=== PATIENT | female | born 1950 | race Caucasian/White ===

== ENCOUNTER 2017-10-18 00:48 | Inpatient (IN) | payer MEDICARE, BC ==
[2017-10-18] MEDS ORDERED: NORMAL SALINE 1,000 ML IV ONE (01:40)
[2017-10-18] MEDS ORDERED: ONDANSETRON HCL/PF 2 MG/ML VIAL IV ONE ×2 (01:40→02:18)
[2017-10-18] MEDS ORDERED: MORPHINE SULFATE 2 MG/ML DISP.SYRIN IV ONE ×4 (01:40→06:13)
--- NOTE | 2017-10-18 01:42 | ERNOTE ---
Abdominal HPI - General Chief Complaint: Abdominal Pain Time Seen by Provider: 10/18/17 01:36 Source: patient Exam Limitations: no limitations - Immun/Allergies/Home Medications Immunizatons: IMMUNIZATION HX Immunizations Up to Date Yes History of Influenza Vaccine Yes Hx Pneumococcal Vaccination Yes Allergies/Adverse Reactions: Allergies Sulfa (Sulfonamide Antibiotics) Allergy (Verified 10/18/17 01:08) Home Medications: HOME MEDICATIONS Atorvastatin Calcium 40 mg PO DAILY 10/18/17 [Last Taken Unknown] Bimatoprost [Lumigan 0.01% Opth Solution] 2.5 ml OP DAILY 10/18/17 [Last Taken Unknown] Cyclobenzaprine HCl 5 mg PO DAILY 10/18/17 [Last Taken Unknown] FLUoxetine HCL [Fluoxetine HCl] 20 mg PO DAILY 10/18/17 [Last Taken Unknown] Fenofibric Acid [Fibricor] 105 mg PO DAILY 10/18/17 [Last Taken Unknown] Losartan Potassium [Cozaar] 50 mg PO DAILY 10/18/17 [Last Taken Unknown] Montelukast Sodium [Singulair] 10 mg PO DAILY 10/18/17 [Last Taken Unknown] Ondansetron [Zofran Odt] 4 mg PO TID PRN 10/18/17 [Last Taken Unknown] Potassium Chloride [Klor-Con 10] 40 meq PO DAILY 10/18/17 [Last Taken Unknown] Verapamil HCl [Verapamil ER] 120 mg PO DAILY 10/18/17 [Last Taken Unknown] acetaZOLAMIDE [Acetazolamide] 375 mg PO DAILY 10/18/17 [Last Taken Unknown] - History of Present Illness Narrative: Pt states she had some abdominal pain yesterday. This afternoon around 16:00 she began to have increasing left abdominal pain with vomiting and diaphoresis. Timing: getting worse Quality: severe, aching Activities at Onset: none Modifying Factors - (Improves): Present: lying down Modifying Factors - (Worsens): Present: movement Associated Symptoms: Present: diaphoresis, nausea, vomiting Prior Abdominal Problems: Present: similar symptoms - with diverticulitis but is more severe this time. Review of Systems - Review of Systems Constitutional: Present: fever, chills. Absent: recent illness EYE: Present: no symptoms reported ENT: Present: no symptoms reported Respiratory: Absent: shortness of breath Cardiology: Absent: chest pain Gastrointestinal/Abdominal: Present: See HPI, nausea, vomiting. Absent: diarrhea, constipation Genitourinary: Absent: dysuria Musculoskeletal: Absent: back pain Skin: Absent: rash Neurological: Present: no symptoms reported Endocrine: Present: excessive sweating Hematologic/Lymphatic: Present: no symptoms reported Psych: Present: no symptoms reported - Patient's Past Medical History Patient History - Medical: Other Patient History - Cardiac/Respiratory: Hypertension, Hyperlipidemia Patient History - Cancer: No Hx of Cancer Patient History - Surgical Procedures: Patient History - Other: None - Social History Living Situations: alone Smoking Status: Never smoker Have you smoked in the past 12 months: No Do you dip or chew tobacco: No Alcohol Use: none Drug Use: none - Immunizations Immunizations Up to Date: Yes Hx Pneumococcal Vaccination: Yes History of Influenza Vaccine: Yes Physical Exam - Physical Exam General Appearance: Present: wd/wn, alert, mild distress Head Exam: Present: normal inspection, no evidence of injury Neck: Present: normal inspection, nontender Respiratory: Present: no respiratory distress, normal breath sounds, no accessory muscle use Cardiovascular/Chest: Present: regular rate, rhythm, no murmur, normal peripheral pulses Gastrointestinal/Abdominal: Present: tenderness - LUQ, LLQ, abnormal bowel sounds - Hypoactive, guarding - mild . Absent: rebound Extremity Exam: Present: normal inspection, normal range of motion Neurological Exam: Present: alert, oriented, no motor/sensory deficits Skin Exam: Present: normal color, warm/dry ED Progress - Results and Orders Patient's Lab Results:: I have reviewed the patient's lab results. Results and Orders: Laboratory Tests 10/18/17 10/18/17 01:40 01:40 WBC 5.7 Hgb 13.3 Hct 39.1 Plt Count 310 Neutrophils % 83.0 H Sodium 139 Potassium 3.4 Chloride 107 H Carbon Dioxide 15.2 L BUN 16 Creatinine 1.00 Random Glucose 211 H Calcium 9.8 Total Bilirubin 0.6 AST 17 ALT 30 Alkaline Phosphatase 54 Total Protein 7.7 Albumin 4.0 Amylase 39 Lipase 136 Laboratory Tests 10/18/17 10/18/17 10/18/17 02:42 02:42 03:47 ESR 19 H C-Reactive Prot, Quant 2.4 H Urine Color Dark yellow Urine Appearance Clear Urine pH 7.0 Ur Specific [place] 1.015 Urine Protein Negative Urine Glucose (UA) Negative Urine Ketones Negative Urine Blood Negative Urine Nitrate Negative Urine Bilirubin Negative Urine Urobilinogen Normal Ur Leukocyte Esterase Negative Urine RBC 5-10 H Urine WBC 0-5 Ur Epithelial Cells 5-10 H Amorphous Sediment Many - 3+ H Urine Bacteria None seen Urine Mucus Few - 1+ H Urine Yeast Moderate - 2+ H Urine Culture Comments No culture indicated - Vital Signs Patient's Vital Signs:: I have reviewed the patient's vital signs. Vital Signs: Vital Signs 10/18/17 01:02 Temperature 37.0 C Pulse Rate 104 H Respiratory 16 Rate Blood Pressure 150/83 O2 Sat by Pulse 98 Oximetry - CT/Ultrasound CT/Ultrasound Narrative: CT abd/ pelvis: gallbladder diffusely distended and contains gallstones Perforated descending diverticulitis with adjacent loculated fluid collection, possibly abscess - Progress/Reassessment Chief Complaint: Abdominal Pain Progress:: Improved Progress Note-Subjective: 10/18/17 05:[address] Gastelum - Gen. Surgery and he agrees with admit and asks to have the patient admitted to medicine and consult him. spoke with Sergey SILVA -hospitalist, she agrees with admit. Departure Clinical Impression: Diverticulitis of colon with perforation Qualifiers: Diverticulitis bleeding: unspecified bleeding status Qualified Code(s): K57.20 - Diverticulitis of large intestine with perforation and abscess without bleeding - Departure Disposition: Still a patient Condition: Stable
[2017-10-18] MEDS ORDERED: MORPHINE SULFATE 2 MG/ML DISP.SYRIN ONE ×4 (01:50→06:13)
[2017-10-18] MEDS ORDERED: ONDANSETRON HCL/PF 2 MG/ML VIAL ONE ×2 (01:51→02:28)
[2017-10-18 02:07] LABS: Hematocrit 39.1 % (37.0-47.0); Hemoglobin 13.3 gm/dL (12.5-16.0); Mean Corpuscular Hemoglobin 27.9 pg (27-31); Mean Platelet Volume 9.9 fl (6.0-9.5); Neutrophil # 4.7 K/mm3 (1.3-6.0); Platelet Count 310 K/mm3 (150-450); Red Blood Count 4.77 M/mm3 (4.2-5.4); Red Cell Distribution Width 13.4 % (11.5-14.0); White Blood Count 5.7 K/mm3 (4.0-10.5)
[2017-10-18 02:29] LABS: Anion Gap 20.2 mmol/L (6.8-13.8); Bilirubin, Total 0.6 mg/dL (0.0-1.1); Ca. Corrected For Albumin 9.5 mg/dL (8.4-10.2); Calcium * 9.8 mg/dL (7.9-10.9); Carbon Dioxide 15.2 mmol/L (24-32.6); Potassium 3.4 mmol/L (3.4-4.6); Total Protein 7.7 gm/dL (6.2-8.2)
[2017-10-18] MEDS ORDERED: DIATRIZOATE MEGLUMINE, SODIUM 30 ML BTL PO ONE (02:47)
[2017-10-18] MEDS ORDERED: DIATRIZOATE MEGLUMINE, SODIUM 30 ML BTL ONE (02:48)
[2017-10-18] MEDS ORDERED: PROMETHAZINE HCL 25 MG/ML AMPUL IM ONE (03:14)
[2017-10-18] MEDS ORDERED: PROMETHAZINE HCL 25 MG/ML AMPUL ONE (03:15)
[2017-10-18 03:54] LABS: Urine Bilirubin Negative (NEGATIVE); Urine Blood Negative /ul (NEGATIVE); Urine Ketone Negative (NEGATIVE); Urine Nitrite Negative (NEGATIVE); Urine Protein Negative (NEGATIVE); Urine Specific Gravity 1.015 SP.GR. (1.005-1.010); Urine Urobilinogen Normal (NORMAL)
[2017-10-18 03:56] LABS: Urine Amorphous Sediment Many - 3+ (NONE-FEW); Urine Appearance Clear (CLEAR); Urine Bacteria None Seen; Urine Color Dark Yellow; Urine Mucus Few - 1+; Urine WBC 0-5 /hpf (0-5); Urine Yeast Moderate - 2+
[2017-10-18] MEDS ORDERED: PROCHLORPERAZINE EDISYLATE 5 MG/ML VIAL IV ONE (05:16)
[2017-10-18] MEDS ORDERED: PROCHLORPERAZINE EDISYLATE 5 MG/ML VIAL ONE (05:18)
[2017-10-18] MEDS ORDERED: CIPROFLOXACIN IN 5 % DEXTROSE 400 MG/200 ML BAG IV SCH (05:45)
[2017-10-18] MEDS ORDERED: MORPHINE SULFATE 2 MG/ML DISP.SYRIN IV PRN (06:57)
[2017-10-18] MEDS ORDERED: ONDANSETRON HCL/PF 2 MG/ML VIAL IV PRN (06:58)
[2017-10-18] MEDS: POTASSIUM CHLORIDE 20 MEQ in DEXTROSE 5%-NORMAL SALINE 990 ML IV SCH ×2 (08:00→23:31)
[2017-10-18] MEDS: PANTOPRAZOLE SODIUM 40 MG in NORMAL SALINE 50 ML IV SCH (08:03)
[2017-10-18] MEDS: metroNIDAZOLE/SODIUM CHLORIDE 500 MG/100 ML BAG IV SCH ×2 (11:15→19:55)
--- NOTE | 2017-10-18 13:08 | CONS ---
HPI - General Date of Service: 10/18/17 Narrative: Pt presented to ER with severe LLQ abdominal pain and was found to have a contained perforation of proximal sigmoid diverticulitis. I have reviewed the films. She has had a previous episode of diverticulitis that was successfully treated with oral antibiotics. Source: patient, RN/MD, old records Exam Limitations: no limitations - History of Present Illness Allergies/Adverse Reactions: Allergies Sulfa (Sulfonamide Antibiotics) Allergy (Severe, Verified 10/18/17 07:12) Hives Home Medications: Home Medications Medication Instructions Recorded Last Taken Atorvastatin Calcium 40 mg PO DAILY 10/18/17 Unknown Bimatoprost [Lumigan 0.01% Opth 2.5 ml OP DAILY 10/18/17 Unknown Solution] Cyclobenzaprine HCl 5 mg PO DAILY 10/18/17 Unknown FLUoxetine HCL [Fluoxetine HCl] 20 mg PO DAILY 10/18/17 Unknown Fenofibric Acid [Fibricor] 105 mg PO DAILY 10/18/17 Unknown Losartan Potassium [Cozaar] 50 mg PO DAILY 10/18/17 Unknown Montelukast Sodium [Singulair] 10 mg PO DAILY 10/18/17 Unknown Ondansetron [Zofran Odt] 4 mg PO TID PRN 10/18/17 Unknown Potassium Chloride [Klor-Con 10] 40 meq PO DAILY 10/18/17 Unknown Verapamil HCl [Verapamil ER] 120 mg PO DAILY 10/18/17 Unknown acetaZOLAMIDE [Acetazolamide] 375 mg PO DAILY 10/18/17 Unknown - Patient's Past Medical History Patient History - Medical: Other Patient History - Cardiac/Respiratory: Hypertension, Hyperlipidemia Patient History - Cancer: No Hx of Cancer Patient History - Surgical Procedures: Patient History - Other: None - Social History Living Situations: alone Abuse History: No History of abuse Psych History: No pertinent hx Smoking Status: Never smoker Have you smoked in the past 12 months: No Do you dip or chew tobacco: No Patient requests Smoking Cessation Consult: No Initiate information on Smoking Cessation: No Alcohol Use: none Drug Use: none - Immunizations Immunizations Up to Date: Yes Hx Pneumococcal Vaccination: Yes History of Influenza Vaccine: Yes Procedures APPLICATION OF SPLINT (03/27/10) Medications - Medications Current Medications: Current Medications Pantoprazole Sodium 40 mg/ (Sodium Chloride) 50 mls @ 200 mls/hr IV Q24H ALENA Stop: 11/17/17 07:01 Last Admin: 10/18/17 08:03 Dose: 200 mls/hr Potassium Chloride 20 meq/ (Dextrose/Sodium Chloride) 1,000 mls @ 80 mls/hr IV .[id number] ALENA Stop: 11/17/17 07:01 Last Admin: 10/18/17 08:00 Dose: 80 mls/hr Metronidazole (Flagyl) 500 mg in 100 mls @ 100 mls/hr IV Q8H ALENA Stop: 11/17/17 11:01 Last Admin: 10/18/17 11:15 Dose: 100 mls/hr Morphine Sulfate (Morphine Sulfate) 2 mg IV Q6H PRN PRN Reason: Pain Stop: 11/17/17 06:58 Last Admin: 10/18/17 11:14 Dose: 2 mg Review of Systems - Review of Systems Abdominal: Present: Abdominal Pain Misc: All systems neg except as marked Physical Examination - Exam Vital Signs: Vital Signs - Last Taken Temp 37.0 C 10/18/17 10:25 Pulse 96 10/18/17 10:25 Resp 24 H 10/18/17 10:25 BP 137/78 10/18/17 10:25 Pulse Ox 91 10/18/17 10:25 O2 Oxygen Delivery Method Room Air Constitutional: Present: Alert, Oriented x3, Cooperative, Well developed, Well nourished, No distress, Obese ENT Exam: Present: normal ENT inspection Eye Exam: bilateral eye: normal inspection Neck: Present: normal inspection Respiratory: Present: lungs clear, normal breath sounds, no respiratory distress , no accessory muscle use Cardiovascular/Chest: Present: regular rate, rhythm, no murmur Abdomen: Present: Normal bowel sounds, soft, nondistended, tender - LLQ Skin Exam: Present: normal color, warm/dry Neurologic: Present: no motor/sensory deficits Appearance: Present: appropriate appearance, appropriate insight Eye contact: Present: cooperative, good eye contact Thoughts: Present: normal thought pattern - Assessments/Findings (1) Diverticulitis of colon with perforation Diagnosis(s): This appears to be a contained perforation. It would be reasonable to treat this with antibiotics and see if it would organize into a drainable abscess that could be treated with percutaneous drainage thereby hopefully avoiding a colostomy. Problem: Acute Qualifiers: Diverticulitis bleeding: unspecified bleeding status Qualified Code(s): K57.20 - Diverticulitis of large intestine with perforation and abscess without bleeding
--- NOTE | 2017-10-18 13:31 | HP ---
Chief Complaint - Chief Complaint Date of Service: 10/18/17 Time of Service: 07:45 Chief Complaint: Abdominal pain History of Present Illness: Shannon Walter is a 66-year-old female who presented to the emergency room last night with abdominal pain. Her workup discovered a ruptured viscus from a perforated diverticulum in the sigmoid colon area. He continues to have pain in the sigmoid pain area this morning. She is nothing by mouth. Onset of her symptoms were last night. She is has some intermittent nausea but was not having any Time of my exam this morning. - Patient's Past Medical History Patient History - Medical: Other Patient History - Cardiac/Respiratory: Hypertension, Hyperlipidemia Patient History - Cancer: No Hx of Cancer Patient History - Surgical Procedures: Patient History - Other: None - Family History Family History:: no untoward family reactions to anesthesia, no familial bleeding tendencies, no family history of clotting disorders, no family history of premature - Social History Living Situations: alone Abuse History: No History of abuse Psych History: No pertinent hx Smoking Status: Never smoker Have you smoked in the past 12 months: No Do you dip or chew tobacco: No Patient requests Smoking Cessation Consult: No Initiate information on Smoking Cessation: No Alcohol Use: none Drug Use: none - Immunizations Immunizations Up to Date: Yes Hx Pneumococcal Vaccination: Yes History of Influenza Vaccine: Yes Review Of Systems (GEN) - Review of Systems Generalized/Overall Review: Present: Malaise EENTM: Present: No Symptoms Reported Respiratory: Present: No Symptoms Reported Cardiac: Present: No Symptoms Reported Abdominal: Present: Nausea, Abdominal Pain Genitourinary: Present: No Symptoms Reported Musculoskeletal: Present: No Symptoms Reported Neurological: Present: No Symptoms Reported Skin: Present: No Symptoms Reported Endocrine: Present: No Symptoms Reported Misc: All systems neg except as marked Immunizations: IMMUNIZATION HX Immunizations Up to Date Yes History of Influenza Vaccine Yes Hx Pneumococcal Vaccination Yes Allergies/Adverse Reactions: Allergies Allergy/AdvReac Type Severity Reaction Status Date / Time Sulfa (Sulfonamide Allergy Severe Hives Verified 10/18/17 07:12 Antibiotics) Home Medications: HOME MEDICATIONS Atorvastatin Calcium 40 mg PO DAILY 10/18/17 [Last Taken Unknown] Bimatoprost [Lumigan 0.01% Opth Solution] 2.5 ml OP DAILY 10/18/17 [Last Taken Unknown] Cyclobenzaprine HCl 5 mg PO DAILY 10/18/17 [Last Taken Unknown] FLUoxetine HCL [Fluoxetine HCl] 20 mg PO DAILY 10/18/17 [Last Taken Unknown] Fenofibric Acid [Fibricor] 105 mg PO DAILY 10/18/17 [Last Taken Unknown] Losartan Potassium [Cozaar] 50 mg PO DAILY 10/18/17 [Last Taken Unknown] Montelukast Sodium [Singulair] 10 mg PO DAILY 10/18/17 [Last Taken Unknown] Ondansetron [Zofran Odt] 4 mg PO TID PRN 10/18/17 [Last Taken Unknown] Potassium Chloride [Klor-Con 10] 40 meq PO DAILY 10/18/17 [Last Taken Unknown] Verapamil HCl [Verapamil ER] 120 mg PO DAILY 10/18/17 [Last Taken Unknown] acetaZOLAMIDE [Acetazolamide] 375 mg PO DAILY 10/18/17 [Last Taken Unknown] Exam - Exam Vital Signs: Vital Signs - Last Taken Temp 37.0 C 10/18/17 10:25 Pulse 96 10/18/17 10:25 Resp 24 H 10/18/17 10:25 BP 137/78 10/18/17 10:25 Pulse Ox 91 10/18/17 10:25 Constitutional: Present: Alert, Oriented x3, Cooperative, Well developed, Well nourished, Moderate distress, Lethargic, Obese ENT Exam: Present: normal ENT inspection Eye Exam: bilateral eye: normal inspection, PERRL, EOMI Neck: Present: non-tender, full range of motion, supple, normal inspection, trachea midline Back Exam: Present: normal inspection, no CVA tenderness, no vertebral tenderness Breasts: Present: Exam deferred Respiratory: Present: chest non-tender, lungs clear, normal breath sounds, no respiratory distress Cardiovascular/Chest: Present: normal peripheral pulses, regular rate, rhythm, no chest tenderness, no edema, no gallop, no JVD, no murmur Peripheral Pulses: carotid (R): 2+, carotid (L): 2+, femoral (R): 2+, femoral (L ): 2+, dorsalis-pedis (R): 2+, dorsalis-pedis (L): 2+, radial (R): 2+, radial (L ): 2+ Abdomen: Present: obese, tender, guarding, rebound tenderness, no bowel sounds /Rectal: Present: Exam deferred Extremity: Present: normal range of motion, non-tender, normal inspection, no pedal edema, no calf tenderness, normal capillary refill Skin Exam: Present: normal color, warm/dry, no cyanosis Lymphatic: Present: no adenopathy, axilla node tender (R) 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, no motor/sensory deficits, normal mood/affect, oriented x 3 Appearance: Present: appropriate appearance, appropriate insight, neat, no memory impairment Eye contact: Present: cooperative, good eye contact, normal speech Thoughts: Present: normal thought pattern, no apparent hallucination Diagnostic Studies: Laboratory Results WBC 5.7 K/mm3 (4.0-10.5) 10/18/17 01:40 RBC 4.77 M/mm3 (4.2-5.4) 10/18/17 01:40 Hgb 13.3 gm/dL (12.5-16.0) 10/18/17 01:40 Hct 39.1 % (37.0-47.0) 10/18/17 01:40 MCV 82.0 fl (78-100) 10/18/17 01:40 MCH 27.9 pg (27-31) 10/18/17 01:40 MCHC 34.0 g/dl (32-36) 10/18/17 01:40 RDW 13.4 % (11.5-14.0) 10/18/17 01:40 Plt Count 310 K/mm3 (150-450) 10/18/17 01:40 MPV 9.9 fl (6.0-9.5) H 10/18/17 01:40 Immature Gran % (Auto) 0.20 % (0.001-0.429) 10/18/17 01:40 Immature Gran # (Auto) 0.01 K/mm3 (0.000-0.0310) 10/18/17 01:40 Neutrophils % 83.0 % (42-75.0) H 10/18/17 01:40 Lymphocytes % 7.0 % (20-51) L 10/18/17 01:40 Monocytes % 9.6 % (0.0-9) H 10/18/17 01:40 Eosinophils % 0.0 % (0.0-3.0) 10/18/17 01:40 Basophils % 0.2 % (0.0-1.0) 10/18/17 01:40 Nucleated RBC % 0.0 k/mm3 (0-1) 10/18/17 01:40 Neutrophils # 4.7 K/mm3 (1.3-6.0) 10/18/17 01:40 Lymphocytes # 0.40 k/mm3 (1.5-3.5) L 10/18/17 01:40 Monocytes # 0.6 k/mm3 (0.0-1.0) 10/18/17 01:40 Eosinophils # 0.0 k/mm3 (0.0-0.7) 10/18/17 01:40 Absolute Basophils 0.0 k/mm3 (0.0-0.1) 10/18/17 01:40 ESR 19 mm/hr (0-15) H 10/18/17 02:42 Sodium 139 mmol/L (132-142) 10/18/17 01:40 Plasma Sodium 141 mmol/L (130-142) 10/18/17 01:40 Potassium 3.4 mmol/L (3.4-4.6) 10/18/17 01:40 Chloride 107 mmol/L (97-106) H 10/18/17 01:40 Carbon Dioxide 15.2 mmol/L (24-32.6) L 10/18/17 01:40 Anion Gap 20.2 mmol/L (6.8-13.8) H 10/18/17 01:40 BUN 16 mg/dL (3-23) 10/18/17 01:40 Creatinine 1.00 mg/dL (0.4-1.4) 10/18/17 01:40 Est GFR (Non-Af Amer) 59 mL/min (60-130) L 10/18/17 01:40 BUN/Creatinine Ratio 16.0 (9.0-21.6) 10/18/17 01:40 Random Glucose 211 mg/dL (70-110) H 10/18/17 01:40 Calcium 9.8 mg/dL (7.9-10.9) 10/18/17 01:40 Calcium Adj for Albumin 9.5 mg/dL (8.4-10.2) 10/18/17 01:40 Total Bilirubin 0.6 mg/dL (0.0-1.1) 10/18/17 01:40 AST 17 U/L (0-48) 10/18/17 01:40 ALT 30 U/L (19-67) 10/18/17 01:40 Alkaline Phosphatase 54 U/L (50-170) 10/18/17 01:40 C-Reactive Prot, Quant 2.4 mg/dL (0.0-0.9) H 10/18/17 02:42 Total Protein 7.7 gm/dL (6.2-8.2) 10/18/17 01:40 Albumin 4.0 gm/dl (3.4-5.0) 10/18/17 01:40 Amylase 39 U/L (25-115) 10/18/17 01:40 Lipase 136 U/L (73-393) 10/18/17 01:40 Urine Color Dark yellow 10/18/17 03:47 Urine Appearance Clear (CLEAR) 10/18/17 03:47 Urine pH 7.0 pH (5.0-7.0) 10/18/17 03:47 Ur Specific [place] 1.015 SP.GR. (1.005-1.010) 10/18/17 03:47 Urine Protein Negative mg/dL (NEGATIVE) 10/18/17 03:47 Urine Glucose (UA) Negative mg/dL (NEGATIVE) 10/18/17 03:47 Urine Ketones Negative mg/dL (NEGATIVE) 10/18/17 03:47 Urine Blood Negative /ul (NEGATIVE) 10/18/17 03:47 Urine Nitrate Negative (NEGATIVE) 10/18/17 03:47 Urine Bilirubin Negative mg/dl (NEGATIVE) 10/18/17 03:47 Urine Urobilinogen Normal EU/dl (NORMAL) 10/18/17 03:47 Ur Leukocyte Esterase Negative /ul (NEGATIVE) 10/18/17 03:47 Urine RBC 5-10 /hpf (0-5) H 10/18/17 03:47 Urine WBC 0-5 /hpf (0-5) 10/18/17 03:47 Ur Epithelial Cells 5-10 /hpf (0-5) H 10/18/17 03:47 Amorphous Sediment Many - 3+ (NONE-FEW) H 10/18/17 03:47 Urine Bacteria None seen (NONE) 10/18/17 03:47 Urine Mucus Few - 1+ (NONE) H 10/18/17 03:47 Urine Yeast Moderate - 2+ (NONE) H 10/18/17 03:47 Urine Culture Comments No culture indicated 10/18/17 03:47 Assessment/Plan - Narrative Narrative: Shannon is admitted to general medical floor with a small leaking perforated diverticulum in the sigmoid area. She is being seen by . He believes that an inflammatory response will occur and that an abscess will develop in the left lower abdomen. He believes the diverticular perforation will seal over. The abscess can then be drained percutaneously at a later time. At this time she has no bowel sounds and is nothing by mouth but he is going to allow ice chips. I will reassess her tomorrow morning she will need some nutritional support until she gets bowel sounds back. Febrile decision will be made tomorrow morning. I'll also reorder laboratory work for morning.
[2017-10-18] MEDS ORDERED: ACETAMINOPHEN 650 MG SUPP.RECT RC PRN (14:25)
[2017-10-18] MEDS: LEVOFLOXACIN IN DEXTROSE 5 % 750 MG/150 ML BAG IV SCH (17:15)
[2017-10-18] MEDS: MORPHINE SULFATE 4 MG/ML SYRG IV PRN ×2 (19:01→22:33)
[2017-10-19] MEDS: MORPHINE SULFATE 4 MG/ML SYRG IV PRN ×9 (01:56→22:38)
[2017-10-19] MEDS: metroNIDAZOLE/SODIUM CHLORIDE 500 MG/100 ML BAG IV SCH ×3 (02:52→20:12)
[2017-10-19 06:15] LABS: Anion Gap 15.4 mmol/L (6.8-13.8); Bilirubin, Total 0.4 mg/dL (0.0-1.1); Ca. Corrected For Albumin 9.8 mg/dL (8.4-10.2); Calcium * 9.3 mg/dL (7.9-10.9); Carbon Dioxide 19.2 mmol/L (24-32.6); Potassium 3.6 mmol/L (3.4-4.6); Total Protein 6.8 gm/dL (6.2-8.2)
[2017-10-19] MEDS: PANTOPRAZOLE SODIUM 40 MG in NORMAL SALINE 50 ML IV SCH (09:24)
[2017-10-19] MEDS: POTASSIUM CHLORIDE 20 MEQ in DEXTROSE 5%-NORMAL SALINE 990 ML IV SCH ×2 (09:28→15:24)
--- NOTE | 2017-10-19 12:32 | PN ---
Subjective - Date and Time Seen Date: 10/19/17 Time: 08:30 Subjective Narrative: Shannon seems to be doing fairly well this morning however her pain management is not adequately controlled at mg of morphine IV every 3 hours. She has no nausea. Her pain is in the left lower quadrant in the area of the perforated diverticulum. She had a slight fever arise again this morning but the acetaminophen suppositories seem to be effective. Objective Objective Narrative: Her vital signs show temperature has been afebrile. She did have a 37.5C temp this morning along with a rise in her heart rate to 1:15 And breathing rate to 28 BPM. Her bowel sounds are much better this morning. She has not passed any flatus however. She has tolerated ice chips well without nausea. Therefore I will add clear liquid diet. The rest for physical exam remains unchanged. - Review of Systems Generalized/Overall Review: Reports: Chills, Fever EENTM: Reports: No Symptoms Reported Respiratory: Reports: No Symptoms Reported Cardiac: Reports: No Symptoms Reported Abdominal: Reports: Abdominal Pain, Other - Bloating Genitourinary Symptoms: Reports: No Symptoms Reported Musculoskeletal Complaints: Reports: No Symptoms Reported Neurological: Reports: No Symptoms Reported Skin: Reports: No Symptoms Reported Endocrine: Reports: No Symptoms Reported Misc: All systems neg except as marked - Vitals Vitals: Last Vital Signs Temp 37.5 C 10/19/17 10:57 Pulse 112 H 10/19/17 10:57 Resp 28 H 10/19/17 10:57 BP 158/86 10/19/17 10:57 Pulse Ox 94 10/19/17 10:57 - Abnormal Lab Findings Abnormal Lab Findings: Abnormal Lab Results 10/19/17 Range/Units 05:47 Chloride 111 H (97-106) mmol/L Carbon Dioxide 19.2 L (24-32.6) mmol/L Anion Gap 15.4 H (6.8-13.8) mmol/L Random Glucose 121 H D (70-110) mg/dL Alkaline Phosphatase 46 L (50-170) U/L Albumin 3.0 L (3.4-5.0) gm/dl - Exam Constitutional: Present: Alert, Oriented x3, Cooperative, Well developed, Well nourished, Mild distress, Middle aged, Obese ENT Exam: Present: normal ENT inspection, hearing grossly normal, pharynx normal Neck: Present: non-tender, full range of motion Breasts: Present: Exam deferred Respiratory: Present: chest non-tender, lungs clear, normal breath sounds Cardiovascular/Chest: Present: normal peripheral pulses, regular rate, rhythm, no chest tenderness, no edema, no gallop, no JVD, no murmur Abdomen: Present: Normal bowel sounds, soft, nontender, rebound tenderness, hypoactive. 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 He believes a small abscess will form and can be percutaneously drained perhaps by an invasive radiologist. This will be predicated on her progress. Dr. Quintanilla is now covering and may make a different decision about surgical urgency. I'll speak with him about his perceptions of how this should be managed. As of now she seems clinically improved and that she has improved bowel sounds. However she is not passing any flatus. She is not having nausea and has not vomited. The abdomen remains very tender in the left lower quadrant and she seems to have increasing narcotic requirement. Her heart rate breathing rate have both been elevated this morning and thought to be because of inadequate pain control which we have remedied by increasing the frequency of her morphine to every 2 hours as needed.
[2017-10-19] MEDS ORDERED: cloNIDine 0.2 MG PATCH.TDWK TD SCH (12:45)
[2017-10-19] MEDS ORDERED: BIMATOPROST 25 DROP BTL EACHEYE SCH ×2 (12:45→21:00)
[2017-10-19] MEDS: LEVOFLOXACIN IN DEXTROSE 5 % 750 MG/150 ML BAG IV SCH (18:24)
[2017-10-20] MEDS: MORPHINE SULFATE 4 MG/ML SYRG IV PRN ×4 (00:42→08:52)
[2017-10-20] MEDS: metroNIDAZOLE/SODIUM CHLORIDE 500 MG/100 ML BAG IV SCH (03:12)
[2017-10-20] MEDS: PANTOPRAZOLE SODIUM 40 MG in NORMAL SALINE 50 ML IV SCH (07:23)
[2017-10-20] MEDS: POTASSIUM CHLORIDE 20 MEQ in DEXTROSE 5%-NORMAL SALINE 990 ML IV SCH (07:27)
--- NOTE | 2017-10-20 08:02 | PN ---
Dictated Progress Note - Date and Time Seen: Date: 10/20/17 Time: 08:00 - Progress Note Narrative: Vital Signs - Last Taken Temp 37.4 C 10/20/17 06:36 Pulse 104 H 10/20/17 06:36 Resp 20 10/20/17 06:36 BP 145/83 10/20/17 06:36 Pulse Ox 91 10/20/17 06:36 The patient is still uncomfortable. Remains tachycardic. Had NG tube inserted last night and post-insertion CXR shows free air under both diaphrams. Recommend transfer for higher level of services.
[2017-10-20 10:34] VITALS: BP 164/91
--- NOTE | 2017-10-20 10:47 | DS ---
(1) Diverticulitis of colon with perforation Problem: Acute Qualifiers: Diverticulitis bleeding: unspecified bleeding status Qualified Code(s): K57.20 - Diverticulitis of large intestine with perforation and abscess without bleeding (2) Continuous severe abdominal pain Problem: Acute Description of Stay: Shannon Walter is a 66-year-old female patient who presented to the hospital on 314 with severe left lower quadrant abdominal pain abdominal bloating and distention. Onset of symptoms was same day. She's had 3 or 4 other episodes since the first of the year which all seem to resolve on their own. This time it would not resolve and she presented to the hospital. She has some nausea and one episode of vomiting. Abdominal CT shows diverticulitis and free air suggesting a perforation. The NG tube was placed last night followed by checking a abdominal x-ray for placement which showed maybe increased free air under the diaphragm. She has become much more comfortable since placing the NG tube. Dr. Quintanilla (general surgery) and has consulted and seen her multiple times as I have. 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 He believes that should be done at another facility and she is being transferred and referred to Dr. Paul at [facility] in [place]. Procedures Performed: see notes below List Procedures: 1. Placement of NG tube 2. CT of abdomen 3. KUB and upright abdomen Results and Findings: The CT scan shows diverticulitis and free air suggesting a perforated viscus. White count on admission was 5700. She's had increasing tachycardia however. Discharge Location: [facility] [place] Disposition: Short Term Hospital Inpatient Condition: Stable Discharge Activity: Other - bedrest and up in chair as tolerated Discharge Diet: NPO - except ice chips Referrals: Veronique Paul DO [Non Staff Physicians] - Consultation Done:: 10/20/2017 at 10:25 AM Additional Patient Instructions (free text): -Please make TCM appointment unless halfway discharge. Thank you! Tonja @ [employer] [facility]. Complete Home Medications List: Complete Home Medication List: Bimatoprost [Lumigan 0.01% Ophthalmic Solution] 2.5 ml OP DAILY 10/18/17 Acetaminophen [Tylenol Suppository] 650 mg RC Q4H PRN supp.rect 10/20/17 Bimatoprost [Lumigan 0.01% Ophthalmic Solution] 1 drop EACHEYE HS btl 10/20/17 Dextrose 5%-Normal Saline [Dextrose 5%-0.9% NS] 83 ml IV .[id number] bag 10/20/17 Levofloxacin/D5w [Levaquin] 750 mg IV Q24H bag 10/20/17 Morphine Sulfate 3 mg IV Q2H PRN disp.syrin 10/20/17 Ondansetron HCl/Pf [Zofran] 4 mg IV Q6H PRN vial 10/20/17 Pantoprazole Sodium [Protonix] 40 mg IV Q24H vial 10/20/17 cloNIDine [Catapres-Tts 2] 0.2 mg TD Q7D patch.tdwk 10/20/17 metroNIDAZOLE/SODIUM CHLORIDE [Flagyl] 500 mg IV Q8H bag 10/20/17
== END 2017-10-20 10:45 | disposition short-term general hospital (02) | DRG 392 ==
LOC: ER 00:48 → MS 06:10
PROVIDERS: ADMIT Nurse Practitioner; ATTEND Family Medicine
DX: K57.20 Diverticulitis of large intestine with perforation and abscess without bleeding; I10 Essential (primary) hypertension; R10.32 Left lower quadrant pain; E78.5 Hyperlipidemia, unspecified; Z88.2 Allergy status to sulfonamides; R00.0 Tachycardia, unspecified
CPT/HCPCS: 36415; 71045; 74019; 74177; 80053; 81001; 82150; 83690; 85025; 85652; 86140; 87040; 94660; 96365; 96372; 96375; 99285; J2405